=== PATIENT | female | born 1985 | race Caucasian/White ===

== ENCOUNTER 2016-12-16 12:18 | Emergency (ER) | payer MEDICAID ==
[~2016-12-16] VITALS: Ht 162.6 cm; Wt 84.4 kg
[2016-12-16 13:36] LABS: BASOPHIL % 0.9 % (0-2); PLATELET COUNT 261 x10^3mcL (130-400)
[2016-12-16 13:39] LABS: CALCIUM 8.8 mg/dL (8.5-10.1); CARBON DIOXIDE 24.5 mmol/L (21-32); CHLORIDE SERUM 103 mmol/L (98-107); CREATININE SERUM 0.8 mg/dL (0.6-1.0); GFR1 > 60 mL/min; GLUCOSE SERUM 105 mg/dL (74-106); POTASSIUM SERUM 3.8 mmol/L (3.5-5.1); RED CELL DISTRIBUTION WIDTH 16.5 % (11.5-14.5); SODIUM SERUM 136 mmol/L (136-145)
[2016-12-16 13:44] LABS: ALBUMIN 3.8 g/dL (3.4-5.0); ALKALINE PHOSPHATASE 77 U/L (46-116); ALT/SGPT 31 U/L (14-59); AMYLASE 41 U/L (25-115); AST/SGOT 29 U/L (15-37); BILIRUBIN TOTAL 0.3 mg/dL (0.20-1.00); LIPASE 208 IU/L (73-393); TOTAL PROTEIN, SERUM 7.6 g/dL (6.4-8.2)
[2016-12-16 13:51] LABS: microscopic required? YES; urine erythrocyte NEGATIVE (NEGATIVE)
[2016-12-16 17:33] VITALS: BP 118/65
== END 2016-12-16 17:33 | disposition home or self-care (01) ==
LOC: ED 12:18
PROVIDERS: Emergency Medicine
DX: N76.0 Acute vaginitis (principal); B96.89 Other specified bacterial agents as the cause of diseases classified elsewhere
CPT/HCPCS: 36415; 83880; 87491; 87591

== ENCOUNTER 2016-12-17 12:04 | Emergency (ER) | payer MEDICAID ==
[2016-12-17 13:06] LABS: PLATELET COUNT 298 x10^3mcL (130-400)
[2016-12-17 13:08] LABS: CALCIUM 8.4 mg/dL (8.5-10.1); CARBON DIOXIDE 26.4 mmol/L (21-32); CHLORIDE SERUM 110 mmol/L (98-107); CREATININE SERUM 0.9 mg/dL (0.6-1.0); GFR1 > 60 mL/min; GLUCOSE SERUM 91 mg/dL (74-106); POTASSIUM SERUM 4.7 mmol/L (3.5-5.1); SODIUM SERUM 144 mmol/L (136-145)
[2016-12-17 13:12] LABS: ALBUMIN 3.6 g/dL (3.4-5.0); ALKALINE PHOSPHATASE 78 U/L (46-116); ALT/SGPT 40 U/L (14-59); AMYLASE 39 U/L (25-115); AST/SGOT 37 U/L (15-37); BASOPHIL % 2.7 % (0-2); BILIRUBIN TOTAL 0.31 mg/dL (0.20-1.00); LIPASE 210 IU/L (73-393); RED CELL DISTRIBUTION WIDTH 15.3 % (11.5-14.5); TOTAL PROTEIN, SERUM 7.4 g/dL (6.4-8.2)
[2016-12-17 15:17] VITALS: BP 110/65
== END 2016-12-17 15:17 | disposition home or self-care (01) ==
LOC: ED 12:04
PROVIDERS: Emergency Medicine
DX: R10.2 Pelvic and perineal pain (principal)
CPT/HCPCS: 83880; J1885; J2405; Q9967

== ENCOUNTER 2017-11-13 21:22 | Emergency (ER) | payer MEDICAID ==
[~2017-11-13] VITALS: Ht 162.6 cm; Wt 66.2 kg
[2017-11-13 21:37] VITALS: Ht 162.6 cm; Wt 66.2 kg
[2017-11-13 23:32] LABS: PLATELET COUNT 347 x10^3mcL (130-400)
[2017-11-13 23:38] LABS: BASOPHIL % 2.9 % (0-2)
[2017-11-13 23:41] LABS: CALCIUM 9.1 mg/dL (8.5-10.1); CARBON DIOXIDE 27.8 mmol/L (21-32); CHLORIDE SERUM 107 mmol/L (98-107); CREATININE SERUM 0.5 mg/dL (0.6-1.0); GFR1 > 60 mL/min; GLUCOSE SERUM 103 mg/dL (74-106); POTASSIUM SERUM 4.1 mmol/L (3.5-5.1); SODIUM SERUM 139 mmol/L (136-145)
[2017-11-13 23:55] LABS: ALKALINE PHOSPHATASE 225 U/L (46-116); ALT/SGPT 71 U/L (14-59); AST/SGOT 75 U/L (15-37); BILIRUBIN TOTAL 0.4 mg/dL (0.20-1.00); FREE T4 5.09 ng/dL (0.76-1.46); LIPASE 165 IU/L (73-393); MAGNESIUM 1.8 mg/dL (1.8-2.4); TOTAL PROTEIN, SERUM 6.9 g/dL (6.4-8.2)
[2017-11-13 23:56] LABS: ALBUMIN 3.3 g/dL (3.4-5.0)
[2017-11-14 00:15] VITALS: BP 121/72
== END 2017-11-14 00:15 | disposition home or self-care (01) ==
LOC: ED 21:22
PROVIDERS: Emergency Medicine
DX: R00.2 Palpitations (principal); E05.90 Thyrotoxicosis, unspecified without thyrotoxic crisis or storm; R42 Dizziness and giddiness; R11.0 Nausea; R05 Cough
CPT/HCPCS: 84439; 85378; J7030

== ENCOUNTER 2017-12-25 23:02 | Emergency (ER) | payer MEDICAID ==
[~2017-12-25] VITALS: Ht 162.6 cm; Wt 74.4 kg
[2017-12-25 23:05] VITALS: Ht 162.6 cm; Wt 74.4 kg
[2017-12-26 00:35] LABS: microscopic required? NO
[2017-12-26 01:05] LABS: UA SPECIFIC GRAVITY >=1.030 (1.005-1.035); urine erythrocyte NEGATIVE (NEGATIVE)
[2017-12-26 03:22] VITALS: BP 122/79
== END 2017-12-26 03:22 | disposition home or self-care (01) ==
LOC: ED 23:02
PROVIDERS: Emergency Medicine
DX: M54.5 Low back pain (principal); R10.9 Unspecified abdominal pain; E05.90 Thyrotoxicosis, unspecified without thyrotoxic crisis or storm
CPT/HCPCS: J1885

== ENCOUNTER 2018-07-02 15:23 | Emergency (ER) | payer SELFPAY ==
[~2018-07-02] VITALS: Ht 162.6 cm; Wt 68.7 kg
[2018-07-02 15:26] VITALS: Ht 162.6 cm; Wt 68.7 kg
[2018-07-02 17:15] LABS: UA SPECIFIC GRAVITY >=1.030 (1.005-1.035); microscopic required? YES; urine erythrocyte NEGATIVE (NEGATIVE)
[2018-07-02 17:36] LABS: T4(THYROXINE) 27.4 ug/dL (4.7-13.3)
[2018-07-02 22:46] VITALS: BP 130/80
== END 2018-07-02 22:46 | disposition home or self-care (01) ==
LOC: ED 15:23
PROVIDERS: Emergency Medicine
DX: E05.90 Thyrotoxicosis, unspecified without thyrotoxic crisis or storm (principal)
CPT/HCPCS: J1720; J1800; J1885; J2405

== ENCOUNTER 2020-03-12 17:18 | Emergency (ER) | payer MEDICAID ==
[~2020-03-12] VITALS: Ht 162.6 cm; Wt 70.3 kg
[2020-03-12 17:24] VITALS: Ht 162.6 cm; Wt 70.3 kg
[2020-03-12 18:59] VITALS: BP 114/70
== END 2020-03-12 18:59 | disposition home or self-care (01) ==
LOC: ED 17:18
DX: E05.90 Thyrotoxicosis, unspecified without thyrotoxic crisis or storm (principal); R00.2 Palpitations; F41.9 Anxiety disorder, unspecified; R45.1 Restlessness and agitation